=== PATIENT | female | born 1930 | race Caucasian/White ===

== ENCOUNTER 2017-03-02 14:30 | Outpatient (CLI) | payer MEDICARE, BC | END 2017-03-02 14:31 | disposition home or self-care (01) | DX: Z51.5 Encounter for palliative care (principal); M54.9 Dorsalgia, unspecified; G31.83 Neurocognitive disorder with Lewy bodies; H54.0 Blindness, both eyes; F41.9 Anxiety disorder, unspecified; R53.81 Other malaise; R41.81 Age-related cognitive decline; F32.9 Major depressive disorder, single episode, unspecified; Z99.3 Dependence on wheelchair; R44.1 Visual hallucinations; E11.9 Type 2 diabetes mellitus without complications; Z86.73 Personal history of transient ischemic attack (TIA), and cerebral infarction without residual deficits; Z79.899 Other long term (current) drug therapy; R53.83 Other fatigue; K59.00 Constipation, unspecified; R32 Unspecified urinary incontinence; B37.9 Candidiasis, unspecified ==

== ENCOUNTER 2017-07-19 11:00 | Outpatient (CLI) | payer MEDICARE, BC ==
--- NOTE | 2017-07-19 20:54 | PROVIDER PROGRESS NOTE ---
Palliative Care Follow Up - Referral Referring Provider: Dr. Agustín Florez Time of Visit: 10-09 Referral setting: Assisted living (Patient is a resident at [facility] since June of 2016; memory care unit) Referral Reason: Lewy body dementia with functional decline/goals of care - Information Sources Records Reviewed: RN notes reviewed, Old records reviewed History obtained from: Family (daughter Aleksandra present for visit; input from caregivers at facility) Exam limitations: Clinical condition (patient minimally engaged; has dementia with poor recall; few yes/no answers with some longer term questions in sentence form) - History of Present Illness Update Brief HPI Update: This is a 86 year old woman with Lewy body dementia and anxiety disorder who I met this last spring when she had taken a turn for the worst. She did have a fairly dramatic decline with minimal intake, depressed and "took to her bed". In discontinuing most of her medications, she did have a reprieve, though family were ready for her to transition, and their goals for her are continued focus on comfort. Brenna had a "rebound" but last couple of months has started to decline again. She has become less verbal, sleeps a majority of the time, but daughter reports her anxiety has been controlled and no further mention of hallucinations on her current regimen. She has had functional decline, now is wheelchair bound, requiring a aisha lift for transfers, has an obvious list to the right, and presents with right hemiparesis. 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 Her right lower extremity is stiff, and unable to move it on command, can move left side without difficulty and simple directions. She is unable to propel herself, so is dependent on staff to take her to meals, she is also unable to reposition her self and I find her uncomfortably set and leaning to right. Patient when asked, does report lower back pain that is exacerbated with poor positioning in chair. Denies pain is keeping her awake at night, or is problematic with exam. I am meeting with daughter to complete face to face as well as review and update goals of care. Social History - Living Situation Living arrangement: Assisted living Support System: Daughter Aleksandra comes weekly, mother less interactive, tries to draw her out, but finds her fatigued and withdrawn most of the time. Her daughter Veronica comes up every few months to visit. Patient has always been introvert and not easily engaged, this has been exacerbated in her old age. She has a son visits occasionally, as well as her second but unsure of his frequency with her decline. Medications/Allergies - Medications Home Medications: Ambulatory Orders Medication Instructions Recorded Confirmed Psyllium Seed (with Sugar) 1 applic ORAL DAILY 05/23/16 07/19/17 [Metamucil Powder] QUEtiapine [SEROquel] 50 mg ORAL QPM 05/23/16 07/19/17 SITagliptin [Januvia] 100 mg ORAL DAILY 05/23/16 07/19/17 Sertraline [Zoloft] 50 mg ORAL DAILY 05/23/16 07/19/17 Acetaminophen 500 mg PO TID 07/19/17 07/19/[address] [Depakote Dr] 250 mg PO BID 07/19/17 07/19/17 Nystatin [Nystop] 100,000 units TOP BID PRN 07/19/17 07/19/17 Polyethylene Glycol 3350 [Miralax] 17 gm PO DAILY 07/19/17 07/19/17 - Allergies Allergies/Adverse Reactions: Allergies Allergy/AdvReac Type Severity Reaction Status Date / Time metformin Allergy Unknown Verified 05/23/16 12:11 Sulfa (Sulfonamide Allergy Unknown Verified 05/23/16 12:11 Antibiotics) temazepam Allergy Unknown Verified 05/23/16 12:11 Review of Systems - Constitutional Constitutional: reports: Fatigue, Weakness, Other (remains weight neutral at about 140; daughter is surprised as perceives she is eating less; staff report they are feeding her) - Eyes Eyes: reports: Vision loss - Ears, Nose & Throat Ears, Nose & Throat: reports: Hearing loss - Cardiovascular Cariovascular: reports: Decr. exercise tolerance. denies: Chest pain - Respiratory Respiratory: denies: Cough, SOB at rest, SOB with exertion - Gastrointestinal Gastrointestinal: denies: Nausea, Vomiting - Genitourinary Genitourinary: reports: Incontinence - Musculoskeletal Musculoskeletal: reports: Back pain, Stiffness, Limited range of motion, Muscle weakness - Integumentary Integumentary: reports: Dryness - Neurological Neurological: reports: General weakness, Focal weakness (right hemiparesis noted ), Memory problems, Slurred speech (speech quiet; difficult to understand) - Psychiatric Psychiatric: reports: Depression, Anxiety. denies: Hallucinations - Endocrine Endocrine: reports: Other (diabetes assisted on januvia) - Hematologic/Lymphatic Hematologic/Lymphatic: denies: Bruising, Recurrent infections - All Other Systems All Other Systems: reports: Reviewed and negative Physical Examination - Vital Signs Temperature: 97.2 C Pulse Rate: 84 Respiratory Rate: 16 O2 Saturation: 96 (RA at rest) Blood Pressure: 118/68 - Physical Exam General Appearance: positive: Mild distress (dislikes multiple questions), Lethargic Eyes Bilateral: positive: Normal inspection ENT: positive: No signs of dehydration Neck: positive: Trachea midline Respiratory: positive: Breath sounds nml Cardiovascular: positive: Regular rate & rhythm Abdomen: positive: Non-tender, Nml bowel sounds, No distention Skin: positive: Pallor, Dryness, Rash (under breasts moist but powder appears to managing any redness; some dried and caking noted) Extremities: positive: No pedal edema Neurologic/Psychiatric: positive: Disoriented to place, Disoriented to time, Weakness, Slurred/abnml speech, Depressed mood/affect Palliative Care - POLST Patient has POLST: Yes POLST Status: DNR, Comfort Measures Pain: Pain unchanged, Location (lower back; unclear if APAP effective but does have poor positioning and complaints intermittent; would assume given her exam) Drowsiness: Severe (7-10) Nausea: None Anxiety: Mild (1-3) Dyspnea: None Anorexia: None Insomnia: Other (patient reports intermittent difficulty; no longer able to call daughter so not calling at night) Constipation: No Feelings of wellbeing/Perceived Quality of Life: Worsening (perceived by daugther to be deteriorating; patient does confirm things are "not fun") Performance Status: Patient dependent on staff for transfers with aisha lift to wheelchair, unable to propel so staff have to schedule to come get her; dislikes her baths (perked up and rolled her eyes on that question), inc. of bowel and bladder[]. - Palliative Care Discussion: Surrogate decision maker-Aleksandra Alberto [phone]. Patient does show decline in both cognitive status, less engaged, sleeping more, less interactive with environment, and functional decline, needing aisha lift for transfers, feeding assist. Daughter feels patient would be devastated if knew her current quality of life. Patient though presenting with some decline since last visit over 4 months ago, has not lost weight, no infections, no skin breakdown and minimal co -morbidities. Discussed normal course of decline/ with dementia is infection and/or sequela from fall. Daughter does not want to interfere with mother's decline including not treating infection but focusing on keeping her comfortable with medications and hospice. Reviewed current care plan/POLST, redone with more direction to staff/ and or ED if happens to end up there. Will discontinue PRN ua at facility to as not cause any confusion. Support and counseling provided to daughter in clarification of goals. But did remind her this still could be an extended time period, they do have financial means to keep her there for a couple of years yet but more concerned about her perceived suffering. Impression and Recommendations - Palliative Care Impression: This is an 86 year old woman with lewy body dementia with continued slow cognitive and functional decline. Patient requiring tilt in space wheelchair to accommodate her lack of ability to reposition with her right hemiparesis; provide support for head; and will require a cushion for pressure distribution on her buttocks/coccyx for maintain current skin integrity already compromised by incontinence. Discussion and clarification of goals accomplished with new POLST and counseling with daughter, communicating with staff. Recommendations/Counseling Done: 1. Lewy body dementia, progressive cognitive decline. Patient's current hallucinations are perceived currently as controlled, daughter reports patient has not reported any persons or other things that were distressing her, she is less verbal so may not be communicating as much. 2. Somnulence. Daughter reports anxiety is overwhelming to patient and prefers she be more sleepy than anxious. Will change scheduled seroquel to night time, has all sedating medications scheduled in the AM. She reports she is "tired" and she does not sleep well sometimes. 3. Fungal nails/long and cracked. Potential for cellulitis. will make a referral to visiting chest painting and sealing supervisor, if not coming soon have nursing staff file. 4. Advanced care planning. Redid POLST to be reflective of current goals of care , discontinued prn UA. Counseling for the continuum of care including hospice at this time does not meet criteria. Encouraged daughter to follow up with [facility] support group as has time. 5. Face to face visit done with information included in note. Will follow up with [facility] as patient would be better served with a tilt in space, current wheelchair does not accommodate her positioning challenges with right hemiparesis. This does seem to have progressed since last visit as far as deficits. Time Spent: 60 minutes with greater than 50% done in counseling with daughter/patient and coordination of care with clinical staff and [facility].
== END 2017-07-19 11:01 | disposition home or self-care (01) ==
LOC: PC 11:00
PROVIDERS: ATTEND Nurse Practitioner Adult Health
DX: Z51.5 Encounter for palliative care (principal); G31.83 Neurocognitive disorder with Lewy bodies; F02.80 Dementia in other diseases classified elsewhere, unspecified severity, without behavioral disturbance, psychotic disturbance, mood disturbance, and anxiety; F41.9 Anxiety disorder, unspecified; R40.0 Somnolence; G81.91 Hemiplegia, unspecified affecting right dominant side; R44.3 Hallucinations, unspecified; B35.3 Tinea pedis; Z99.3 Dependence on wheelchair; Z66 Do not resuscitate

== ENCOUNTER 2017-10-05 14:00 | Outpatient (CLI) | payer MEDICARE, BC ==
--- NOTE | 2017-10-05 20:25 | CONSULTATION NOTE ---
Palliative Care Follow Up - Referral Referring Provider: Dr. Agustín Florez Time of Visit: [id number] Referral setting: Assisted living (Patient seen at [facility] assisted living dementia unit, patient is mostly wheelchair bound it would be considerable and taxing effort for her to leave the facility.) Referral Reason: Lewy Body Dementia with functional decline - Information Sources Records reviewed: RN notes reviewed, Previous records reviewed History/Review of Systems obtained from: Family (met daughter Aleksandra Alberto at visit;), Caregiver (reviewed functional status and concerns with clinical staff on transfers) Exam limitations: Clinical condition (patient with slow verbal responses of just few words) - History of Present Illness Update Brief HPI Update: This is an 86-year-old woman with Lewy body dementia and anxiety disorder, she has remains somewhat "plateaued" remaining weight neutral at 134.8, without any recent infections, still recognizes her daughters, is able to carry on some anterior change that is appropriate. Clinical staff though noted that she is less verbal, less likely to engage in conversation or response, but not to the point of word salad. The most significant change has been actually in her functional status. Patient previously had been able to pivot transfer to the wheelchair. She now is a total Lowell lift, she does have toning and anxiety with the transfers. She pushes back again staff, more difficulty following directions and cueing for the transfers She does now have a tilt in space wheelchair, that does help with positioning as she does tend to lean to the right. I find her right side with significant toning and stiffness on exam. She does have bilateral upper extremity tremors. They are transferring her 100% of the time with a Lowell lift, the agreement was to trial of the facility Lowell lift before obtaining her own. I am here to also provide a [id number] in ordering the equipment. Social History - Living Situation Living arrangement: Assisted living (She has been a resident at [facility] since 2016, most recently her daughter Veronica came to visit her from [place]. Her daughter Aleksandra comes on a regular basis to monitor her care as well.) Support System: Significant other is not, and visit her anymore, related to his own health issues. Shall keep him posted Medications/Allergies - Medications Home Medications: Ambulatory Orders Medication Instructions Recorded Confirmed Psyllium Seed (with Sugar) 1 applic ORAL DAILY 05/23/16 10/05/17 [Metamucil Powder] QUEtiapine [SEROquel] 25 mg ORAL BID 05/23/16 10/05/17 SITagliptin [Januvia] 100 mg ORAL DAILY 05/23/16 10/05/17 Sertraline [Zoloft] 50 mg ORAL DAILY 05/23/16 10/05/17 Acetaminophen 500 mg PO TID 07/19/17 10/05/[address] [Depakote Dr] 250 mg PO BID 07/19/17 10/05/17 Polyethylene Glycol 3350 [Miralax] 17 gm PO DAILY 07/19/17 10/05/17 Acetaminophen 500 mg PO Q4HR PRN MDD 3000 mg 10/05/17 10/05/17 - Allergies Allergies/Adverse Reactions: Allergies Allergy/AdvReac Type Severity Reaction Status Date / Time metformin Allergy Unknown Verified 05/23/16 12:11 Sulfa (Sulfonamide Allergy Unknown Verified 05/23/16 12:11 Antibiotics) temazepam Allergy Unknown Verified 05/23/16 12:11 Review of Systems - Constitutional Constitutional: reports: Weight stable - Eyes Eyes: reports: Vision loss - Genitourinary Genitourinary: reports: Incontinence - Musculoskeletal Musculoskeletal: reports: Stiffness, Limited range of motion, Transfer issues - Integumentary Integumentary: reports: Dryness - Neurological Neurological: reports: General weakness, Memory problems - Psychiatric Psychiatric: reports: Depression (mostly stays to self; is an introvert though with not be able to self propell they do bring her out for activities), Anxiety , Delusions (patient did talk a little about "wicked things" unclear if she was describing some of her delusions or the lowell transfers; unable to expand on theme but denied distress with it) - Endocrine Endocrine: reports: Diabetes type 2 - Other Findings Other Findings: Limited ROS secondary to patient's poor memory and recall, patient did though engage in exam and was cooperative. Physical Exam - Vital Signs Temperature: 96.9 C Pulse Rate: 64 Respiratory Rate: 16 O2 Saturation: 95 (ra @ rest) Blood Pressure: 128/72 - Physical Exam General Appearance: positive: No acute distress Eyes Bilateral: positive: No lid inflammation ENT: positive: No signs of dehydration Neck: positive: No JVD, Trachea midline Cardiovascular: positive: Regular rate & rhythm Respiratory: positive: Diminished in bases Abdomen: positive: Non-tender, Soft, Nml bowel sounds Skin: positive: Pallor, Dryness Extremities: positive: No pedal edema, Other (tremors upper extremities; stiffness and toning on right side on exam) Neurologic/Psychiatric: positive: Disoriented to place, Disoriented to time, Depressed mood/affect, Other (voice very quiet; responses somewhat delayed but mostly appropriate if they didn't need memory recall) Palliative Care - POLST Patient has POLST: Yes POLST Status: DNR, Comfort Measures Pain: Pain unchanged Constipation: No Feelings of wellbeing/Perceived Quality of Life: Poor, Comment (Daughter's perception of patient's quality of life is quite poor given patient's continued cognitive and functional decline. Feels her mother would not appreciate her limiting her life has become) - Palliative Care Discussion: Met with daughter surrogate decision maker Aleksandra morris [phone]. Patient does have cognitive changes as far as less verbal, less engaged, sleeping more and her functional status continues to decline. She is now dependent for Lowell transfers. She does feel very sad for her mother with her current quality of life, recognizing this can be a fairly long and extensive journey, she is hopeful that if something acute such as infection are more catastrophic changes i.e. another stroke that we would not interfere as to not prolong her suffering. She is very supportive and loving towards her mom but still perceives her as suffering. Impression and Recommendations - Palliative Care Impression: This is an 86-year-old woman with Lewy body dementia with continued very slow cognitive and functional decline. She has acquired her tilt in space wheelchair that has accommodated her lack of ability to be position with her right-sided hemiparesis and residual stiffness. She now needs a total lift for staff to build manage her. They have been successful with a Lowell. Patient without signs or symptoms of distress during our visit, she was cooperative, and agreed I could come back. Recommendations/Counseling Done: 1. Lewy body dementia, some noted cognitive decline. Patient does have some expression today of delusions/hallucinations but do not appear distressed for them. Daughter has not heard any reports of previous discussion of things that were distressing to her. She denies distress or concern at time of visit. 2. Fungal nails. These are much improved, she is now seeing the visiting senior systems software engineer no signs or symptoms of infection. 3. Functional decline. Due to patient's right-sided my paresis and stiffness, muscle weakness, and wheelchair bound As a result of her progressive Lewy bodies dementia. Patient requires a mechanical patient lift as otherwise patient will be confined to bed. She does need it to transfer to wheelchair and to toilet. If they did not have the lip she would be bed confined. Mechanical lift will be used to perform all patient transfers between bed, wheelchair, and toilet. 4. Advanced care planning. Patient has a POLST, that is currently reflective of goals. Counseling and support to both patient and daughter provided in the context of this prolonged trajectory. Daughter still perceives current quality of life is quite poor for patient and patient seems somewhat resigned and withdrawn when discussing her feelings regarding this. It is interesting though she was somewhat able to participate in conversation around quality of life and getting older. And the changes that has brought. Time Spent: 85 minutes with greater than 50% of this done in counseling coordination of care with clinical staff regarding needing clarification of Lowell lift, anticipatory guidance provided for daughter and review of symptom management for patient as well as addressing and follow-up on skin issues.
== END 2017-10-05 14:01 | disposition home or self-care (01) ==
LOC: PC 14:00
PROVIDERS: ATTEND Nurse Practitioner Adult Health
DX: Z51.5 Encounter for palliative care (principal); G31.83 Neurocognitive disorder with Lewy bodies; F02.80 Dementia in other diseases classified elsewhere, unspecified severity, without behavioral disturbance, psychotic disturbance, mood disturbance, and anxiety; F41.9 Anxiety disorder, unspecified; F32.9 Major depressive disorder, single episode, unspecified; E11.9 Type 2 diabetes mellitus without complications; B35.1 Tinea unguium; R53.1 Weakness; Z99.3 Dependence on wheelchair; Z79.899 Other long term (current) drug therapy; Z66 Do not resuscitate

== ENCOUNTER 2017-10-14 12:30 | Outpatient (CLI) | payer MEDICARE, BC ==
--- NOTE | 2017-10-14 19:09 | CONSULTATION NOTE ---
Palliative Care Follow Up - Referral Referring Provider: Dr. Florez Time of Visit: 12:30-1300 Referral setting: Assisted living Referral Reason: Dementia with behavioral disturbances - Information Sources Records reviewed: Previous records reviewed History/Review of Systems obtained from: Caregiver Exam limitations: Clinical condition (patient with advanced dementia; difficulty participating in exam) - History of Present Illness Update Brief HPI Update: This is an 86-year-old woman with Lewy body dementia and anxiety disorder, was reported to have some escalating behaviors this last week started over last weekend that included resistance to care, kicking, hitting, and attempting to scratch and/or choke staff. These did diminish over the week. Seemed more prominent during transfers. In response unfortunately, a UA was obtained. Agreement had been to just treat for comfort. In the context of this it was positive but not strongly positive. Over the week she did not developed increased pain or fever, she is still eating at her baseline which is mostly her health shake, she is pushing fluids, and on exam today she has no pain with abdominal palpation she is quite cooperative with exam, and actually when asked if she is having pain and burning with urination or distress she said no, she said so I can count my blessings". She has had UTIs in the past so I suspect would be familiar with what I was asking. She denies any pain she has been sleeping at night and continues to be quite frail. I had just seen her last week or [id number] for [place], her most significant symptoms have been functional decline and changes in her cognitive status more word salad versus being able to engage and answers to questions. Social History - Living Situation Living arrangement: Assisted living Support System: She has been a resident at [facility] since 2016, recently seen by her daughter Veronica who comes every few months. Her daughter Aleksandra is on a regular basis as well to monitor her care. Medications/Allergies - Medications Home Medications: Ambulatory Orders Medication Instructions Recorded Confirmed Psyllium Seed (with Sugar) 1 applic ORAL DAILY 05/23/16 10/05/17 [Metamucil Powder] QUEtiapine [SEROquel] 25 mg ORAL BID 05/23/16 10/05/17 SITagliptin [Januvia] 100 mg ORAL DAILY 05/23/16 10/05/17 Sertraline [Zoloft] 50 mg ORAL DAILY 05/23/16 10/05/17 Acetaminophen 500 mg PO TID 07/19/17 10/05/[address] [Depakote Dr] 250 mg PO BID 07/19/17 10/05/17 Polyethylene Glycol 3350 [Miralax] 17 gm PO DAILY 07/19/17 10/05/17 Acetaminophen 500 mg PO Q4HR PRN MDD 3000 mg 10/05/17 10/05/17 - Allergies Allergies/Adverse Reactions: Allergies Allergy/AdvReac Type Severity Reaction Status Date / Time metformin Allergy Unknown Verified 05/23/16 12:11 Sulfa (Sulfonamide Allergy Unknown Verified 05/23/16 12:11 Antibiotics) temazepam Allergy Unknown Verified 05/23/16 12:11 Review of Systems - Constitutional Constitutional: reports: Weight stable - Eyes Eyes: reports: Vision loss - Ears, Nose & Throat Ears, Nose & Throat: reports: Hearing loss - Respiratory Respiratory: denies: Cough - Gastrointestinal Gastrointestinal: reports: Other (no change in intake, mostly has her health shakes, resists being fed and with vision issues unable to be independent in feeding at this time). denies: Constipation - Genitourinary Genitourinary: reports: Incontinence - Musculoskeletal Musculoskeletal: reports: Transfer issues (Using [place] for transfers, this is somewhat distressing with her vision changes. They have really done her room which I suspect is adding to her agitation.) - Integumentary Integumentary: reports: Dryness - Neurological Neurological: reports: Memory problems, Slurred speech - Psychiatric Psychiatric: reports: Anxiety - Other Findings Other Findings: Limited review of systems because of patient's dementia. Physical Exam - Vital Signs Temperature: 96.9 C Pulse Rate: 88 Respiratory Rate: 18 O2 Saturation: 97 (ra @ rest) Blood Pressure: 112/64 - Physical Exam General Appearance: positive: No acute distress Eyes Bilateral: positive: Normal inspection ENT: positive: No signs of dehydration Neck: positive: Trachea midline Cardiovascular: positive: Regular rate & rhythm Respiratory: positive: Diminished in bases Abdomen: positive: Non-tender, Soft, Nml bowel sounds. negative: Guarding, Distended Skin: positive: Pallor Extremities: positive: Other (wheelchair bound; in tilt in space w/c) Neurologic/Psychiatric: positive: Disoriented to person, Disoriented to place, Disoriented to time, Depressed mood/affect Palliative Care - POLST Patient has POLST: Yes POLST Status: DNR, Comfort Measures (no antibiotics; no medical nutrition) Performance Status: Patient dependent on staff for transfers, all ADLs, assistance with feeding though she is quite resistant to this. She does spend a great part of her day up in the tilt in space wheelchair. She probably sleeps 60-70% of the day. - Palliative Care Discussion: Patient on exam appears at baseline, she has not had progressive symptoms through the week. She has no fever chills, she does have a history of UTIs but did call and speak with the daughter Aleksandra. Did review the series of unfortunate events to the week that led up to my visit today. Show reiterated goals, focus on comfort, no interference for any acute and/or ongoing decline. Reassured patient appears quite comfortable, Have been in communication with Dr. Nguyen her PCP. Will have Lorazepam available for periods of agitation or distress for patient. This did satisfy her. Again if patient were to transition our appear to be heading towards a end-of-life event with transition at that point in time to hospice. Daughter's perception of quality of life remains quite poor, and does not want extend or prolong her suffering. Results - Lab Results Lab results reviewed: Yes Impression and Recommendations - Palliative Care Impression: This is an 86-year-old woman with Lewy body dementia anxiety disorder had an exacerbation of some neuropsychiatric symptoms with agitation and anxiety early in the week. She is still having some intermittent symptoms of distress though these have settled down. She does not present with any fever, chills, or signs or symptoms of sepsis today. She continues to eat and drink without difficulty. Agreement was to continue to focus on comfort and no further intervention. Recommendations/Counseling Done: 1. Lewy body dementia with behavioral disturbances. When patient seen last week she did have some expression of some delusions/hallucinations she was not verbal enough to elicit any of this today. Though she does deny distress pain or anxiety and was actually attempting to be socially conversant. Given her outbursts are impacting both patient and staff safety, consulted with PCP which will order Lorazepam for as needed use. 2. Functional decline. They are using the [place] lift of the facility, have had contact with [facility] still not delivered patient's [place] lift. Her lift is required for all transfers at this point in time, it does appear to be somewhat of a distressing incident intermittently for patient. I am not surprised though given her vision changes and cognitive decline. 3. Advanced care planning. Patient has a POLST that is reflective of the goals. Follow-up with daughter to reiterate and review current condition and concerns to the week. She is satisfied with the current outcome regarding this. Again psychosocial support offered to the daughter as this is been very difficult for her to see her mother's ongoing poor quality of life and perception of her suffering. Time Spent: Time spent 30 minutes with greater than 50% of this done wtih counseling and coordination of care with clinical staff follow-up with PCP and daughter.
== END 2017-10-14 12:31 | disposition home or self-care (01) ==
LOC: PC 12:30
PROVIDERS: ATTEND Nurse Practitioner Adult Health
DX: Z51.5 Encounter for palliative care (principal); G31.83 Neurocognitive disorder with Lewy bodies; F02.81 Dementia in other diseases classified elsewhere, unspecified severity, with behavioral disturbance; F41.9 Anxiety disorder, unspecified; Z79.899 Other long term (current) drug therapy; R32 Unspecified urinary incontinence; H54.7 Unspecified visual loss; H91.90 Unspecified hearing loss, unspecified ear; Z99.3 Dependence on wheelchair; Z66 Do not resuscitate

== ENCOUNTER 2017-12-31 19:35 | Outpatient (CLI) | payer MEDICARE, BC | END 2017-12-31 19:36 | disposition E | LOC: EMS 19:35 | PROVIDERS: ATTEND Surgery ==